=== PATIENT | female | born 1965 | race Caucasian/White ===

== ENCOUNTER → 2020-07-04 | Outpatient (REF) | LOC: M LAB 08:39 | PROVIDERS: ATTEND Nurse Practitioner Adult Health | DX: Z00.00 Encounter for general adult medical examination without abnormal findings (principal) ==

== ENCOUNTER → 2021-03-04 | Outpatient (REF) | LOC: M LABSMTC 10:49 | PROVIDERS: ATTEND Family Medicine | DX: Z11.52 Encounter for screening for COVID-19 (principal) ==

== ENCOUNTER → 2022-09-03 | Outpatient (REF) | LOC: M EMP 08:34 | PROVIDERS: ATTEND Family Medicine | DX: Z11.52 Encounter for screening for COVID-19 (principal) ==

== ENCOUNTER → 2023-12-11 | Outpatient (REF) | LOC: M EMP 08:05 | PROVIDERS: ATTEND Family Medicine | DX: Z11.52 Encounter for screening for COVID-19 (principal) ==